=== PATIENT | female | born 1930 | race Caucasian/White ===

== ENCOUNTER 2017-01-13 06:35 | Day surgery (SDC) | payer OTHER, MEDICARE ==
[2017-01-13] MEDS ORDERED: DIPHENHYDRAMINE 25 MG in SODIUM CHLORIDE 50 ML IVPB ONE (08:00)
[2017-01-13] MEDS ORDERED: ACETAMINOPHEN 325 MG TABLET (FP) PO ONE (08:00)
[2017-01-13] MEDS ORDERED: RITUXIMAB IVPB ONE (08:15)
[2017-01-13] MEDS ORDERED: SODIUM CHLORIDE IVPB ONE (08:15)
[2017-01-13 09:04] LABS: BASOPHIL 1.3 % (0-2.0); EOSINOPHIL 5.8 % (0-4.5); MCH 29.2 pg (25.7-33.7); MCHC 33.4 g/dl (32.0-36.0); MEAN CELL VOLUME 87.6 fl (80-96); MEAN PLT VOLUME 9.2 fl (7.5-11.1); NEUTROPHILS 58.5 % (42.8-82.8); PLATELET COUNT 225 K/MM3 (134-434); WHITE BLOOD COUNT 6.4 K/mm3 (4.0-10.0)
[2017-01-13] MEDS ORDERED: SODIUM CHLORIDE 250 ML IV ONE (10:00)
[2017-01-13 10:57] LABS: BASOPHIL 1.2 % (0-2.0); EOSINOPHIL 4.7 % (0-4.5); MCH 29.1 pg (25.7-33.7); MEAN CELL VOLUME 88.1 fl (80-96); MEAN PLT VOLUME 9.1 fl (7.5-11.1); PLATELET COUNT 218 K/MM3 (134-434); RDW 13.3 % (11.6-15.6); WHITE BLOOD COUNT 6.4 K/mm3 (4.0-10.0)
[2017-01-13 11:10] LABS: ALBUMIN 3.6 g/dl (3.4-5.0); BILIRUBIN,TOTAL 0.6 mg/dL (0.2-1.0); CALCIUM 9.1 mg/dL (8.5-10.1); CREATININE 0.9 mg/dL (0.55-1.02); TOT PROT 7.7 g/dl (6.4-8.2)
[2017-01-13] MEDS ORDERED: ACETAMINOPHEN 325 MG TABLET (FP) ONE (11:11)
[2017-01-13 15:05] VITALS: BMI 27.8
[2017-01-13 16:18] VITALS: BP 108/54; PULSE 82; TEMP 98.3
[2017-01-14 06:06] LABS: IGG IMMUNOGLOBULIN 1300 mg/dL (700-1600); IGM IMMUNOGLOBULIN 188 mg/dL (26-217)
[2017-01-18 00:07] LABS: A/G RATIO 0.9 (0.7-1.7); ALBUMIN 3.5 g/dL (2.9-4.4); M-SPIKE Not Observed g/dL (Not Observed); TOTAL PROTEIN 7.5 g/dL (6.0-8.5)
== END 2017-01-13 16:18 | disposition home or self-care (01) ==
LOC: JONCCHEMO 06:35 → J7W 06:36 → JONCCHEMO 16:18
PROVIDERS: ATTEND Internal Medicine Hematology & Oncology
PROC: 3E03305 Introduction of Other Antineoplastic into Peripheral Vein, Percutaneous Approach (ICD-10-PCS; principal; 2017-01-13)
PROC: 3E0337Z Introduction of Electrolytic and Water Balance Substance into Peripheral Vein, Percutaneous Approach (ICD-10-PCS; 2017-01-13)
PROC: 3E033GC Introduction of Other Therapeutic Substance into Peripheral Vein, Percutaneous Approach (ICD-10-PCS; 2017-01-13)
DX: Z51.11 Encounter for antineoplastic chemotherapy (principal); C91.10 Chronic lymphocytic leukemia of B-cell type not having achieved remission
CPT/HCPCS: 36415; 80053; 82784; 84155; 84165; 85025; 96361; 96367; 96413; 96415; J9310

== ENCOUNTER 2017-03-09 07:02 | Day surgery (SDC) | payer OTHER, MEDICARE ==
[2017-03-09] MEDS ORDERED: ACETAMINOPHEN 325 MG TABLET (FP) PO ONE (08:00)
[2017-03-09] MEDS ORDERED: DIPHENHYDRAMINE 25 MG in SODIUM CHLORIDE 50 ML IVPB ONE (08:00)
[2017-03-09 08:27] LABS: BASOPHIL 0.9 % (0-2.0); EOSINOPHIL 6.3 % (0-4.5); MCH 28.8 pg (25.7-33.7); MCHC 32.7 g/dl (32.0-36.0); MEAN CELL VOLUME 88.3 fl (80-96); MEAN PLT VOLUME 9.3 fl (7.5-11.1); NEUTROPHILS 55.3 % (42.8-82.8); PLATELET COUNT 214 K/MM3 (134-434); RDW 13.1 % (11.6-15.6); WHITE BLOOD COUNT 5.6 K/mm3 (4.0-10.0)
[2017-03-09] MEDS ORDERED: RITUXIMAB IVPB ONE (08:30)
[2017-03-09] MEDS ORDERED: SODIUM CHLORIDE IVPB ONE (08:30)
[2017-03-09 10:37] LABS: ALBUMIN 3.6 g/dl (3.4-5.0); CALCIUM 9.3 mg/dL (8.5-10.1); COCKROFT - GAULT 53.6605; CREATININE 0.9 mg/dL (0.55-1.02); MAGNESIUM 2.5 mg/dL (1.8-2.4); URIC ACID 4.5 mg/dL (2.6-7.2)
[2017-03-09 10:43] LABS: BILIRUBIN,DIRECT 0.1 mg/dL (0.0-0.2); BILIRUBIN,TOTAL 0.5 mg/dL (0.2-1.0); TOT PROT 7.2 g/dl (6.4-8.2)
[2017-03-09] MEDS ORDERED: SODIUM CHLORIDE 250 ML IV ONE (11:47)
[2017-03-09 14:31] VITALS: BP 118/71; PULSE 78; TEMP 97.8
[2017-03-10 08:07] LABS: IGG IMMUNOGLOBULIN 1122 mg/dL (700-1600); IGM IMMUNOGLOBULIN 164 mg/dL (26-217)
== END 2017-03-09 13:50 | disposition home or self-care (01) ==
LOC: JONCCHEMO 07:02 → J7W 08:52 → JONCCHEMO 13:50
PROVIDERS: ATTEND Internal Medicine Hematology & Oncology
PROC: 3E03305 Introduction of Other Antineoplastic into Peripheral Vein, Percutaneous Approach (ICD-10-PCS; principal; 2017-03-09)
PROC: 3E033GC Introduction of Other Therapeutic Substance into Peripheral Vein, Percutaneous Approach (ICD-10-PCS; 2017-03-09)
PROC: 3E0337Z Introduction of Electrolytic and Water Balance Substance into Peripheral Vein, Percutaneous Approach (ICD-10-PCS; 2017-03-09)
DX: Z51.11 Encounter for antineoplastic chemotherapy (principal); C91.10 Chronic lymphocytic leukemia of B-cell type not having achieved remission; M06.9 Rheumatoid arthritis, unspecified; D47.2 Monoclonal gammopathy
CPT/HCPCS: 36415; 80048; 80076; 82784; 83615; 83735; 84550; 85025; 96360; 96367; 96375; 96413; 96415; J9310

== ENCOUNTER 2017-05-04 07:31 | Day surgery (SDC) | payer OTHER, MEDICARE ==
[2017-05-04 09:40] LABS: BASOPHIL 1.3 % (0-2.0); EOSINOPHIL 4.4 % (0-4.5); MCH 29.5 pg (25.7-33.7); MCHC 33.4 g/dl (32.0-36.0); MEAN CELL VOLUME 88.2 fl (80-96); MEAN PLT VOLUME 9.2 fl (7.5-11.1); NEUTROPHILS 58.7 % (42.8-82.8); PLATELET COUNT 199 K/MM3 (134-434); WHITE BLOOD COUNT 5.6 K/mm3 (4.0-10.0)
[2017-05-04] MEDS ORDERED: ACETAMINOPHEN 325 MG TABLET (FP) PO ONE (10:00)
[2017-05-04] MEDS ORDERED: DIPHENHYDRAMINE 25 MG in SODIUM CHLORIDE 50 ML IVPB ONE (10:00)
[2017-05-04] MEDS ORDERED: SODIUM CHLORIDE 250 ML IV ONE (10:00)
[2017-05-04 10:11] LABS: ALBUMIN 3.7 g/dl (3.4-5.0); BILIRUBIN,TOTAL 0.5 mg/dL (0.2-1.0); CALCIUM 9.6 mg/dL (8.5-10.1); COCKROFT - GAULT 49.3; CREATININE 0.9 mg/dL (0.55-1.02); MAGNESIUM 2.5 mg/dL (1.8-2.4); TOT PROT 7.5 g/dl (6.4-8.2)
[2017-05-04] MEDS ORDERED: SODIUM CHLORIDE IVPB ONE (10:30)
[2017-05-04] MEDS ORDERED: RITUXIMAB IVPB ONE (10:30)
[2017-05-04 15:23] VITALS: BP 154/76; PULSE 73; TEMP 98.3
== END 2017-05-04 15:41 | disposition home or self-care (01) ==
LOC: JONCCHEMO 07:31 → J7W 10:19 → JONCCHEMO 15:41
PROVIDERS: ATTEND Internal Medicine Hematology & Oncology
DX: Z51.11 Encounter for antineoplastic chemotherapy (principal); C91.10 Chronic lymphocytic leukemia of B-cell type not having achieved remission; M06.9 Rheumatoid arthritis, unspecified; D47.2 Monoclonal gammopathy
CPT/HCPCS: 36415; 80053; 82784; 83615; 83735; 85025; 85651; 96360; 96367; 96413; 96415; J9310

== ENCOUNTER 2017-06-28 07:30 | Day surgery (SDC) | payer OTHER, MEDICARE ==
[2017-06-28] MEDS ORDERED: SODIUM CHLORIDE 250 ML IV ONE (08:00)
[2017-06-28] MEDS ORDERED: ACETAMINOPHEN 325 MG TABLET (FP) PO ONE (08:00)
[2017-06-28] MEDS ORDERED: DIPHENHYDRAMINE 25 MG in SODIUM CHLORIDE 50 ML IVPB ONE (08:00)
[2017-06-28] MEDS ORDERED: SODIUM CHLORIDE IVPB ONE (08:30)
[2017-06-28] MEDS ORDERED: RITUXIMAB IVPB ONE (08:30)
[2017-06-28 10:22] LABS: BASOPHIL 1.1 % (0-2.0); EOSINOPHIL 4.5 % (0-4.5); MCH 29.2 pg (25.7-33.7); MCHC 33.3 g/dl (32.0-36.0); MEAN CELL VOLUME 87.7 fl (80-96); MEAN PLT VOLUME 8.8 fl (7.5-11.1); PLATELET COUNT 215 K/MM3 (134-434); RDW 12.8 % (11.6-15.6); WHITE BLOOD COUNT 5.9 K/mm3 (4.0-10.0)
[2017-06-28 11:03] LABS: ALBUMIN 3.5 g/dl (3.4-5.0); CALCIUM 9.4 mg/dL (8.5-10.1); CO2 32 mmol/L (21-32); CREATININE 0.9 mg/dL (0.55-1.02); GLUCOSE,RANDOM 144 mg/dL (74-106); SGOT/AST 18 U/L (15-37); SGPT/ALT 25 U/L (12-78)
[2017-06-28 11:06] LABS: BILIRUBIN,DIRECT < 0.1 mg/dL (0.0-0.2)
[2017-06-28 11:10] LABS: ALK PHOS 84 U/L (45-117); BILIRUBIN,TOTAL 0.4 mg/dL (0.2-1.0); TOT PROT 7.2 g/dl (6.4-8.2)
[2017-06-28] MEDS ORDERED: ACETAMINOPHEN 325 MG TABLET (FP) ONE (11:18)
[2017-06-28 12:07] LABS: ANION GAP 7 (8-16)
[2017-06-28 17:43] VITALS: BP 172/92; PULSE 80; TEMP 97.9
== END 2017-06-28 15:30 | disposition home or self-care (01) ==
LOC: JONCCHEMO 07:30 → J7W 09:26 → JONCCHEMO 15:30
PROVIDERS: ATTEND Internal Medicine Hematology & Oncology
DX: Z51.11 Encounter for antineoplastic chemotherapy (principal); C91.10 Chronic lymphocytic leukemia of B-cell type not having achieved remission; M06.9 Rheumatoid arthritis, unspecified; D47.2 Monoclonal gammopathy
CPT/HCPCS: 36415; 80048; 80076; 85025; 86707; 86803; 87350; 96375; 96413; 96415; J9310

== ENCOUNTER 2019-11-13 08:33 | Day surgery (SDC) | payer OTHER, MEDICARE ==
[2019-11-12 15:56] VITALS: BMI 29.2
[2019-11-13] MEDS ORDERED: SODIUM CHLORIDE 0.9% P/F 10 ML VIAL IJ ONE (10:23)
[2019-11-13] MEDS ORDERED: ceFAZolin SODIUM 1 GM VIAL ONE (10:23)
[2019-11-13] MEDS ORDERED: PROPOFOL 20 ML ONE (10:31)
[2019-11-13] MEDS ORDERED: ceFAZolin SODIUM 1 GM VIAL IVPB ONE (11:22)
--- NOTE | 2019-11-13 11:44 | OP ---
Operative Note - Note: Operative Date: 11/13/19 Pre-Operative Diagnosis: Left renal calculus Operation: Left Lithotripsy Findings: 7 mm left lp stone Surgeon: James Maciel MD. Anesthesia: General Operative Report Dictated: Yes
[2019-11-13] MEDS ORDERED: ELECTROLYTE-148 SOLN 1,000 ML IV SCH (11:45)
[2019-11-13 12:21] VITALS: TEMP 97.5
--- NOTE | 2019-11-13 13:02 | OP ---
DATE OF OPERATION: 11/13/2019 PREOPERATIVE DIAGNOSIS: Left renal calculus. POSTOPERATIVE DIAGNOSIS: Left renal calculus. PROCEDURE: Left lithotripsy. HISTORY: This is a very pleasant, 89-year-old female with a long history of renal calculi. The patient was found to have a 7-mm stone on preoperative imaging. Due to the patient's overall relatively good state of health for her age, it was elected to proceed with treatment for her stone. Risks and benefits of observation and treatment and alternative treatment were discussed in detail. All questions were answered. BRIEF OPERATIVE NOTE: Patient was brought into the operative suite, placed in supine position. Once the stone was localized using 3-D imaging, timeout was performed, and IV antibiotics were given. The patient was then sedated. Approximately 2500 shocks were delivered in a fashion. Patient tolerated procedure well fragment radiographically. Patient brought to the recovery room in stable and satisfactory condition. aIn SANTOS/[id number]
[2019-11-13 13:29] VITALS: BP 124/69; PULSE 78
== END 2019-11-13 13:29 | disposition home or self-care (01) ==
LOC: JASU-SURG 08:33
PROVIDERS: ATTEND Urology
PROC: 0TF4XZZ Fragmentation in Left Kidney Pelvis, External Approach (ICD-10-PCS; principal; 2019-11-13 10:45)
DX: N20.0 Calculus of kidney (principal)
CPT/HCPCS: 82962